=== PATIENT | female | born 1970 | race Caucasian/White ===

== ENCOUNTER 2017-03-08 19:34 | Emergency (ER) | payer SELFPAY ==
[2017-03-08 19:46] VITALS: BP 130/72; PULSE 86; TEMP 98.6; BMI 23.7
--- NOTE | 2017-03-08 20:42 | PDOC ---
History of Present Illness - General Chief Complaint: Weakness Stated Complaint: FATIGUE Time Seen by Provider: 03/08/17 20:17 History Source: Patient Exam Limitations: No Limitations - History of Present Illness Initial Comments: 03/08/17 21:41 47-year-old female with no medical history presents to the emergency department complaining of bitemporal throbbing headache, fatigue, diarrhea times for approximately one hour ago after having dinner. Patient states nonbilious/ nonbloody. Patient denies fever, chills, dizziness, lightheadedness, facial pain , rhinorrhea, nasal congestion, sore throat, neck pain/stiffness, chest pain, shortness of breath, abdominal pains, flank pains, urinary symptoms. Timing/Duration: 1 hour Past History - Past Medical History Allergies/Adverse Reactions: Allergies Allergy/AdvReac Type Severity Reaction Status Date / Time No Known Allergies Allergy Verified 03/08/17 19:46 Home Medications: Ambulatory Orders NK [No Known Home Medication] 11/24/14 Cardiac Disorders: Yes (A-FIB X1) COPD: No - Suicide/Smoking/Psychosocial Hx Smoking History: Never smoked Hx Alcohol Use: No Drug/Substance Use Hx: No Substance Use Type: None Review of Systems - Review of Systems Able to Perform ROS?: Yes Comments:: 03/08/17 21:42 CONSTITUTIONAL: +malaise Absent: fever, chills, diaphoresis, generalized weakness, loss of appetite HEENT: Absent: rhinorrhea, nasal congestion, throat pain, throat swelling, difficulty swallowing, mouth swelling, ear pain, eye pain, visual Changes CARDIOVASCULAR: Absent: chest pain, loss of consciousness, palpitations, irregular heart rate, peripheral edema RESPIRATORY: Absent: cough, shortness of breath, dyspnea with exertion, orthopnea, wheezing, stridor, hemoptysis GASTROINTESTINAL: +diarrhea Absent: abdominal pain, abdominal distension, nausea, vomiting, constipation, melena, hematochezia GENITOURINARY: Absent: dysuria, frequency, urgency, hesitancy, hematuria, flank pain, genital pain MUSCULOSKELETAL: Absent: myalgia, arthralgia, joint swelling SKIN: Absent: rash, itching, pallor HEMATOLOGIC/IMMUNOLOGIC: Absent: easy bleeding, easy bruising, lymphadenopathy, frequent infections ENDOCRINE: Absent: unexplained weight gain, unexplained weight loss, heat intolerance, cold intolerance Is the patient limited Vietnamese proficient: No *Physical Exam - Vital Signs Last Vital Signs Temp Pulse Resp BP Pulse Ox 98.6 F 86 18 130/72 100 03/08/17 19:43 03/08/17 19:43 03/08/17 19:43 03/08/17 19:43 03/08/17 19:43 - Physical Exam Comments: 03/08/17 21:43 GENERAL: Well developed, well nourished. Awake and alert. No acute distress. HEENT: Normocephalic, atraumatic. PERRLA, EOMI. No conjunctival pallor. Sclera are non- icteric. Moist mucous membranes. Oropharynx is clear. NECK: Supple. Full ROM. No JVD. Carotid pulses 2+ and symmetric, without bruits. No thyromegaly. No lymphadenopathy. CARDIOVASCULAR: Regular rate and rhythm. No murmurs, rubs, or gallops. Distal pulses are 2+ and symmetric. PULMONARY: No evidence of respiratory distress. Lungs clear to auscultation bilaterally. No wheezing, rales or rhonchi. ABDOMINAL: Soft. Non-tender. Non-distended. No rebound or guarding. No organomegaly. Normoactive bowel sounds. MUSCULOSKELETAL Normal range of motion at all joints. No bony deformities or tenderness. No CVA tenderness. EXTREMITIES: No cyanosis. No clubbing. No edema. No calf tenderness. SKIN: Warm and dry. Normal capillary refill. No rashes. No jaundice. NEUROLOGICAL: Alert, awake, appropriate. Cranial nerves 2-12 intact. No deficits to light touch and temperature in face, upper extremities and lower extremities. No motor deficits in the in face, upper extremities and lower extremities. Normoreflexic in the upper and lower extremities. Normal speech. Toes are down- going bilaterally. Gait is normal without ataxia. PSYCHIATRIC: Cooperative. Good eye contact. Appropriate mood and affect. Heart Score/ECG Review - History History: Slightly suspicious - Age Age: >/= 65 - P and WV Prolonged WV Interval: 1st Degree Block(>20mils) - ECG Impressions Comment:: 03/08/17 22:28 Incomplete RBBB ED Treatment Course - LABORATORY CBC & Chemistry Diagram: 03/08/17 20:55 03/08/17 20:55 *DC/Admit/Observation/Transfer Diagnosis at time of Disposition: Malaise - Discharge Dispostion Disposition: HOME Condition at time of disposition: Stable Admit: No - Referrals Referrals: Yumiko Carrillo [Primary Care Provider] - - Patient Instructions Additional Instructions: Return to the severe/persistent/worsening symptoms - Post Discharge Activity
[2017-03-08 21:02] LABS: BASOPHIL 0.7 % (0-2.0); EOSINOPHIL 1.9 % (0-4.5); MCH 29.5 pg (25.7-33.7); MCHC 33.7 g/dl (32.0-36.0); MEAN CELL VOLUME 87.4 fl (80-96); MEAN PLT VOLUME 9.5 fl (7.5-11.1); NEUTROPHILS 57.8 % (42.8-82.8); PLATELET COUNT 166 K/MM3 (134-434); RDW 13.7 % (11.6-15.6); WHITE BLOOD COUNT 4.8 K/mm3 (4.0-10.0)
[2017-03-08] MEDS ORDERED: SODIUM CHLORIDE 1,000 ML IV STA (21:02)
[2017-03-08 21:32] LABS: ALBUMIN 3.9 g/dl (3.4-5.0); ALK PHOS 82 U/L (45-117); ANION GAP 5 (8-16); BILIRUBIN,TOTAL 0.7 mg/dL (0.2-1.0); CO2 28 mmol/L (21-32); CREATININE 0.8 mg/dL (0.55-1.02); GLUCOSE,RANDOM 112 mg/dL (74-106); SGOT/AST 12 U/L (15-37); SGPT/ALT 21 U/L (12-78); TOT PROT 6.8 g/dl (6.4-8.2)
[2017-03-08 21:43] LABS: URINE APPEARANCE CLEAR; URINE BILIRUBIN NEGATIVE (NEGATIVE); URINE BLOOD NEGATIVE (NEGATIVE); URINE COLOR COLORLESS; URINE GLUCOSE (UA) NEGATIVE (NEGATIVE); URINE KETONE NEGATIVE (NEGATIVE); URINE NITRITE NEGATIVE (NEGATIVE); URINE PROTEIN NEGATIVE (NEGATIVE); URINE UROBILINOGEN NEGATIVE mg/dL (0.2-1.0)
--- NOTE | 2017-03-08 22:18 | PDOC ---
*Physical Exam - Vital Signs Last Vital Signs Temp Pulse Resp BP Pulse Ox 98.6 F 86 18 130/72 100 03/08/17 19:43 03/08/17 19:43 03/08/17 19:43 03/08/17 19:43 03/08/17 19:43 ED Treatment Course - LABORATORY CBC & Chemistry Diagram: 03/08/17 20:55 03/08/17 20:55 - ADDITIONAL ORDERS Additional order review: Laboratory Results 03/08/17 03/08/17 21:30 20:55 Sodium 140 Potassium 4.1 Chloride 107 Carbon Dioxide 28 Anion Gap 5 L BUN 15 Creatinine 0.8 Creat Clearance w eGFR > 60 Random Glucose 112 H Calcium 9.0 Total Bilirubin 0.7 AST 12 L ALT 21 Alkaline Phosphatase 82 Total Protein 6.8 Albumin 3.9 Urine Color Colorless Urine Appearance Clear Urine pH 6.0 Ur Specific [place] 1.002 Urine Protein Negative Urine Glucose (UA) Negative Urine Ketones Negative Urine Blood Negative Urine Nitrite Negative Urine Bilirubin Negative Urine Urobilinogen Negative 03/08/17 20:55 RBC 4.65 MCV 87.4 MCHC 33.7 RDW 13.7 MPV 9.5 Neutrophils % 57.8 Lymphocytes % 29.2 Monocytes % 10.4 H Eosinophils % 1.9 Basophils % 0.7 - Medications Given in the ED: ED Medications Discontinued Medications Generic Name Dose Route Start Last Admin Trade Name Freq PRN Reason Stop Dose Admin Sodium Chloride 1,000 mls @ 1,000 mls/hr 03/08/17 21:02 03/08/17 21:05 Normal Saline - IV 03/08/17 22:01 1,000 mls/hr ASDIR STA Administration Medical Decision Making - Medical Decision Making 03/08/17 22:18 Pt seen by the Advanced Practice Provider under my direct supervision Ancillary studies reviewed I agree with plan as outlined by the Advanced Practice Provider ELKE Downey *DC/Admit/Observation/Transfer - Referrals Referrals: Yumiko Carrillo [Primary Care Provider] - - Patient Instructions - Post Discharge Activity
[2017-03-09 11:21] LABS: URINE LEUK ESTERASE Negative (NEGATIVE)
--- NOTE | 2017-03-10 14:25 | EKG ---
Test Reason : Blood Pressure : / mmHG Vent. Rate : 069 BPM Atrial Rate : 069 BPM P-R Int : 216 ms QRS Dur : 096 ms QT Int : 412 ms P-R-T Axes : 081 054 049 degrees QTc Int : 441 ms SINUS RHYTHM WITH 1ST DEGREE A-V BLOCK POSSIBLE LEFT ATRIAL ENLARGEMENT INCOMPLETE RIGHT BUNDLE BRANCH BLOCK BORDERLINE ECG NO PREVIOUS ECGS AVAILABLE Confirmed by TOSHIA RAMIREZ MD ([id number]) on 03/10/2017 2:24:57 PM Referred By: Confirmed By:TOSHIA RAMIREZ MD
== END 2017-03-08 22:51 | disposition home or self-care (01) ==
LOC: JER 19:34
PROC: 3E0337Z Introduction of Electrolytic and Water Balance Substance into Peripheral Vein, Percutaneous Approach (ICD-10-PCS; principal; 2017-03-08)
DX: R53.81 Other malaise (principal)
CPT/HCPCS: 36415; 80053; 81003; 85025; 93005; 93010; 99282-25

== ENCOUNTER 2017-04-15 19:35 | Emergency (ER) | payer OTHER ==
--- NOTE | 2017-04-15 19:51 | PDOC ---
History of Present Illness - General History Source: Patient, Relocation Manager Used Exam Limitations: No Limitations - History of Present Illness Initial Comments: 04/15/17 21:41 The patient is a 47 year old female, with no significant past medical history, who presents to the emergency department with a headache and dry mouth since earlier this evening. The patient reports that "something just doesn't feel right". The patient states that she has been experiencing similar episodes over the past six weeks and has been evaluated in the ED ([facility]) several times over the same time period. She reports that her symptoms first began when she donated a large amount of blood six weeks ago. Each time she visits the ED, she reports that she has been worked up with normal results. She reports that she was also seen by her civil preparedness coordinator and had 24 hour Holter monitoring and an echocardiogram, both of which came back as normal. The patient denies fever, chills, nausea or vomiting. The patient denies shortness of breath or chest pain. The patient denies a history of panic attacks. Allergies: None reported. Past Surgical History: None reported. Social History: Non-smoker. Denies alcohol or drug use. <Argenis Alexis - Last Filed: 04/15/17 21:40> <Pily Tijerina - Last Filed: 04/16/17 03:25> - General Chief Complaint: Headache Stated Complaint: C/O FARAH, NAUSEA, SHAKES, DRY MOUTH Time Seen by Provider: 04/15/17 19:50 Past History <Argenis Alexis - Last Filed: 04/15/17 21:40> - Past Medical History Cardiac Disorders: Yes (A-FIB X1) COPD: No - Suicide/Smoking/Psychosocial Hx Smoking History: Never smoked Hx Alcohol Use: No Drug/Substance Use Hx: No Substance Use Type: None <Pily Tijerina - Last Filed: 04/16/17 03:25> - Past Medical History Allergies/Adverse Reactions: Allergies Allergy/AdvReac Type Severity Reaction Status Date / Time No Known Allergies Allergy Verified 03/08/17 19:46 Home Medications: Ambulatory Orders NK [No Known Home Medication] 11/24/14 Review of Systems - Review of Systems Able to Perform ROS?: Yes Comments:: 04/15/17 21:40 GENERAL/CONSTITUTIONAL: No fever or chills. No weakness. HEAD, EYES, EARS, NOSE AND THROAT: +Dry mouth. No change in vision. No ear pain or discharge. No sore throat. CARDIOVASCULAR: No chest pain or shortness of breath. RESPIRATORY: No cough, wheezing, or hemoptysis. GASTROINTESTINAL: No nausea, vomiting, diarrhea or constipation. GENITOURINARY: No dysuria, frequency, or change in urination. MUSCULOSKELETAL: No joint or muscle swelling or pain. No neck or back pain. SKIN: No rash. NEUROLOGIC: +Headache. No vertigo, loss of consciousness, or change in strength/ sensation. ENDOCRINE: No increased thirst. No abnormal weight change. HEMATOLOGIC/LYMPHATIC: No anemia, easy bleeding, or history of blood clots. ALLERGIC/IMMUNOLOGIC: No hives or skin allergy. <Argenis Alexis - Last Filed: 04/15/17 21:40> *Physical Exam - Physical Exam Comments: 04/15/17 20:03 GENERAL: Awake, alert, and fully oriented, in no acute distress. HEAD: No signs of trauma. EYES: PERRLA, EOMI, sclera anicteric, conjunctiva clear. ENT: Auricles normal inspection, hearing grossly normal, nares patent, oropharynx clear without exudates. Moist mucosa. NECK: Normal ROM, supple, no lymphadenopathy, JVD, or masses. LUNGS: Breath sounds equal, clear to auscultation bilaterally. No wheezes, and no crackles. HEART: Regular rate and rhythm, normal S1 and S2, no murmurs, rubs or gallops. ABDOMEN: Soft, nontender, normoactive bowel sounds. No guarding, no rebound. No masses. EXTREMITIES: Normal range of motion, no edema. No clubbing or cyanosis. No cords , erythema, or tenderness. NEUROLOGICAL: Hyperreflexic and tremulous. Cranial nerves II through XII intact. Normal speech, normal gait. SKIN: Warm, dry, normal turgor, no rashes or lesions noted. <Argenis Alexis - Last Filed: 04/15/17 21:40> ED Treatment Course - LABORATORY CBC & Chemistry Diagram: 04/15/17 20:30 04/15/17 20:30 <Argenis Alexis - Last Filed: 04/15/17 21:40> - LABORATORY CBC & Chemistry Diagram: 04/15/17 20:30 04/15/17 20:30 <Pily Tijerina - Last Filed: 04/16/17 03:25> Medical Decision Making - Medical Decision Making 04/16/17 03:21 Pt comes with vague complaints of malaise and feeling unwell at intervals over the past 6 weeks, bouts of wozziness followed by copious large frequent bowel movements. Unclear if she has hyperthyroidism, panic attacks, food intolerance or some neuro or rheumatologic condition. Pt has normal labs here. However her TSH is normal but her [id number] uptake is elevated. Unclear if she may have borderline hyperthyroidism. SHe will be asked to follow with an endocrinolgist. 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 We discussed that inspite of this she can be having panic attacks. <Pily Tijerina - Last Filed: 04/16/17 03:25> *DC/Admit/Observation/Transfer - Attestations Scribe Attestion: 04/15/17 19:59 Documentation prepared by Argenis Alexis, acting as director biomedical engineering for Pily Tijerina MD. <Argenis Alexis - Last Filed: 04/15/17 21:40> - Discharge Dispostion Admit: No <Pily Tijerina - Last Filed: 04/16/17 03:25> Diagnosis at time of Disposition: Hyper reflexia, Hyperthyroidism - Discharge Dispostion Disposition: HOME Condition at time of disposition: Stable - Patient Instructions Additional Instructions: FOLLOW WITH AN AIRCRAFT LOAD CONTROLLER
[2017-04-15 21:19] LABS: BASO % 0.8 % (0-2.0); EOS % 0.8 % (0-4.5); HEMATOCRIT 40.1 % (32.4-45.2); HEMOGLOBIN 13.8 GM/dl (10.7-15.3); MCH 30.1 pg (25.7-33.7); MCHC 34.4 g/dl (32.0-36.0); MEAN CELL VOLUME 87.4 fl (80-96); MEAN PLT VOLUME 10.3 fl (7.5-11.1); MONO % 6.7 % (3.8-10.2); NEUT % 69.7 % (42.8-82.8); PLATELET COUNT 151 K/MM3 (134-434); RBC 4.59 M/mm3 (3.60-5.2); RDW 12.7 % (11.6-15.6); WHITE BLOOD COUNT 4.7 K/mm3 (4.0-10.8)
[2017-04-15 21:48] LABS: ALBUMIN 4.5 g/dl (3.5-5.0); ALK PHOS 56 U/L (32-92); ANION GAP 8 (8-16); BILIRUBIN,TOTAL 1.3 mg/dl (0.2-1.0); BLOOD UREA NITROGEN 9 mg/dl (7-18); CALCIUM 9.7 mg/dl (8.4-10.2); CHLORIDE 108 mmol/L (98-107); CO2 25 mmol/L (22-28); CREATININE 0.6 mg/dl (0.6-1.3); GLUCOSE,RANDOM 94 mg/dl (74-106); POTASSIUM 3.5 mmol/L (3.5-5.1); SGOT/AST 17 U/L (10-42); SGPT/ALT 15 U/L (10-40); SODIUM 141 mmol/L (136-145); TOT PROT 6.9 g/dl (6.4-8.3)
[2017-04-15 22:47] VITALS: TEMP 98.5
[2017-04-15 22:53] VITALS: BP 135/68; PULSE 72; BMI 22.6
[2017-04-15 23:21] LABS: COCAINE, UR NEGATIVE ng/ml (CUTOFF=300); METHADONE, UR NEGATIVE ng/ml (CUTOFF=300); OPIATES, URI NEGATIVE ng/ml (CUTOFF=300); PHENCYCLIDINE,URINE NEGATIVE ng/ml (CUTOFF=25); URINE AMPHETAMINES NEGATIVE ng/ml (CUTOFF=500); URINE BARBITURATES NEGATIVE ng/ml (CUTOFF=200); URINE BENZODIAZEPINES NEGATIVE ng/ml (CUTOFF=200)
[2017-04-15] MEDS ORDERED: VALSARTAN 80 MG TABLET (UD) PO ONE (23:30)
--- NOTE | 2017-04-17 12:31 | EKG ---
Test Reason : Blood Pressure : / mmHG Vent. Rate : 075 BPM Atrial Rate : 075 BPM P-R Int : 212 ms QRS Dur : 096 ms QT Int : 394 ms P-R-T Axes : 083 048 043 degrees QTc Int : 439 ms SINUS RHYTHM WITH 1ST DEGREE A-V BLOCK INCOMPLETE RIGHT BUNDLE BRANCH BLOCK BORDERLINE ECG WHEN COMPARED WITH ECG OF 08-MAR-2017 22:25, NONSPECIFIC T WAVE ABNORMALITY NO LONGER EVIDENT IN ANTERIOR LEADS Confirmed by MELISA MIRELES, TARIK ([id number]) on 04/17/2017 12:31:03 PM Referred By: DR TAYLOR Confirmed By:TARIK VINCENT MD
== END 2017-04-16 | disposition home or self-care (01) ==
LOC: FER 19:35
DX: R25.1 Tremor, unspecified (principal); E05.90 Thyrotoxicosis, unspecified without thyrotoxic crisis or storm; R29.2 Abnormal reflex; I48.91 Unspecified atrial fibrillation
CPT/HCPCS: 36415; 80053; 80307; 84443; 84479; 84480; 84481; 85025; 93005; 99282-25

== ENCOUNTER 2020-06-17 20:54 | Emergency (ER) | payer OTHER ==
[2020-06-17 21:18] VITALS: TEMP 98.1; BMI 22.6
[2020-06-17 21:46] LABS: BASO % 1.2 % (0-2.0); EOS % 0.5 % (0-4.5); HEMATOCRIT 43.4 % (32.4-45.2); HEMOGLOBIN 14.7 GM/dl (10.7-15.3); LYMPH % 19.5 % (8-40); MCH 29.1 pg (25.7-33.7); MEAN CELL VOLUME 85.8 fl (80-96); MEAN PLT VOLUME 9.2 fl (7.5-11.1); MONO % 5.7 % (3.8-10.2); NEUT % 73.1 % (42.8-82.8); PLATELET COUNT 201 K/MM3 (134-434); RBC 5.05 M/mm3 (3.60-5.2); RDW 13.5 % (11.6-15.6); WHITE BLOOD COUNT 8.1 K/mm3 (4.0-10.8)
[2020-06-17 21:48] LABS: INR 1.22 (0.82-1.09); PROTHROMBIN TIME (PATIENT) 13.5 SEC (10.2-13.0)
[2020-06-17 21:51] LABS: ALBUMIN 4.7 g/dl (3.4-5.0); BILIRUBIN,TOTAL 1.7 mg/dl (0.2-1); CALCIUM 9.6 mg/dl (8.5-10); CREATININE 0.6 mg/dl (0.55-1.3); POTASSIUM 3.3 mmol/L (3.5-5.1); TOT PROT 6.1 g/dl (6.4-8.2)
[2020-06-17 21:55] VITALS: BP 132/76
[2020-06-17] MEDS ORDERED: POTASSIUM CHLORIDE TABS 20 MEQ TABLET.ER (FP) PO ONE ×2 (22:11→22:22)
[2020-06-17 22:15] LABS: EPITHELIAL CELLS FEW /hpf
[2020-06-17 22:29] VITALS: PULSE 89
[2020-06-17] MEDS ORDERED: SODIUM CHLORIDE 1,000 ML IV STA (22:58)
== END 2020-06-17 23:36 | disposition home or self-care (01) ==
LOC: FER 20:54
PROC: 3E0337Z Introduction of Electrolytic and Water Balance Substance into Peripheral Vein, Percutaneous Approach (ICD-10-PCS; principal; 2020-06-17)
DX: I48.0 Paroxysmal atrial fibrillation (principal)
CPT/HCPCS: 36415; 71045-TC-FY; 80053; 81003; 81015; 82550; 84443; 84484; 85025; 85610; 93005; 99284-25

== ENCOUNTER 2020-11-15 15:36 | Emergency (ER) | payer OTHER ==
[2020-11-15 15:54] VITALS: BP 146/87; PULSE 98; TEMP 98.9; BMI 24.6
[2020-11-15 16:51] LABS: BASO % 1.7 % (0-2.0); EOS % 0.7 % (0-4.5); HEMATOCRIT 42.7 % (32.4-45.2); HEMOGLOBIN 14.6 GM/dl (10.7-15.3); LYMPH % 19.9 % (8-40); MCH 29.8 pg (25.7-33.7); MCHC 34.3 g/dl (32.0-36.0); MEAN CELL VOLUME 86.9 fl (80-96); MEAN PLT VOLUME 9.4 fl (7.5-11.1); MONO % 6.6 % (3.8-10.2); NEUT % 71.1 % (42.8-82.8); PLATELET COUNT 171 10^3/uL (134-434); RBC 4.92 M/mm3 (3.60-5.2); RDW 13.5 % (11.6-15.6); WHITE BLOOD COUNT 5.4 K/mm3 (4.0-10.8)
[2020-11-15 16:59] LABS: ALBUMIN 4.7 g/dl (3.4-5.0); ALK PHOS 70 U/L (45-117); ANION GAP 10 MMOL/L (8-16); BILIRUBIN,TOTAL 1.9 mg/dl (0.2-1); CALCIUM 10.2 mg/dl (8.5-10); CHLORIDE 104 mmol/L (98-107); CO2 26 mmol/L (21-32); CREATININE 0.7 mg/dl (0.55-1.3); GLUCOSE,RANDOM 92 mg/dl (74-106); SGOT/AST 25 U/L (15-37); SGPT/ALT 23 U/L (13-61); SODIUM 140 mmol/L (136-145); TOT PROT 7.6 g/dl (6.4-8.2)
[2020-11-15] MEDS ORDERED: SODIUM CHLORIDE 1,000 ML IV STA (17:10)
[2020-11-15] MEDS ORDERED: FAMOTIDINE 20 MG/50 ML IVPB 20 MG/50 ML MG IVPB ONE (18:07)
== END 2020-11-15 19:05 | disposition home or self-care (01) ==
LOC: FER 15:36
PROC: 3E033GC Introduction of Other Therapeutic Substance into Peripheral Vein, Percutaneous Approach (ICD-10-PCS; principal; 2020-11-15)
PROC: 3E0337Z Introduction of Electrolytic and Water Balance Substance into Peripheral Vein, Percutaneous Approach (ICD-10-PCS; 2020-11-15)
DX: R07.89 Other chest pain (principal)
CPT/HCPCS: 36415; 71045-TC-FY; 80053; 82550; 82553; 84484; 85025; 93005; 99285-25

== ENCOUNTER 2024-04-03 10:05 | Emergency (ER) | payer BC ==
[2024-04-03 10:20] VITALS: BP 137/79; PULSE 77; RESP 15; TEMP 98.2; BMI 25.3
[2024-04-03] MEDS ORDERED: CEPHALEXIN MONOHYDRATE 500 MG CAPSULE (UD) ONE (10:35)
[2024-04-03] MEDS: CEPHALEXIN MONOHYDRATE 500 MG CAPSULE (UD) PO ONE (10:40)
== END 2024-04-03 11:09 | disposition home or self-care (01) ==
LOC: FER 10:05
DX: L03.115 Cellulitis of right lower limb (principal)
CPT/HCPCS: 99283-25